=== PATIENT | female | born 1945 | race Caucasian/White ===

== ENCOUNTER 2019-09-29 15:12 | Observation (INO) | payer MEDICARE ==
[~2019-09-29] VITALS: Ht 162.6 cm; Wt 60.0 kg
--- NOTE | 2019-09-29 16:13 | RAD ---
Right forearm 2 views portable: Reason for examination: Fell with pain. The radius and ulna appear to be intact on the images given. Bone density is normal. No abnormal periosteal reaction is seen. Wrist and elbow joints. We've maintained. IMPRESSION: No acute bony abnormality evident at the visualized portion of the radius and ulna. Right shoulder 3 views portable: The clavicle and scapula appear to be intact and the AC joint is maintained. The glenohumeral joint is maintained. There is however a comminuted fracture of the proximal humeral shaft with angulation and displacement. IMPRESSION: Comminuted fracture of the proximal right humerus with angulation and displacement. Right humerus 2 views portable: Again noted is a comminuted fracture of the proximal humeral shaft with angulation and displacement. The glenohumeral joint is maintained. IMPRESSION: Comminuted fracture of the proximal right humerus with angulation and displacement. Electronically signed by: Sara Rodriguez MD (09/29/2019 4:10 PM) [id number]
[2019-09-29] MEDS ORDERED: MORPHINE SULFATE 10 MG/ML VIAL. IV ONE (16:15)
--- NOTE | 2019-09-29 16:55 | PDOC1 ---
History and Physical Date of Admission Date of Admission DATE: 09/29/19 TIME: 16:54 Identification/Chief Complaint Chief Complaint MECHANICAL FALL AT HOME, TRIPPED, seen in er with humeral fx , IN SEVERE PAIN Past Medical History Past Medical History Past Medical History Past Medical History Past Medical History: Depression, Other Additional Past Medical Histor: HERPES Past Surgical History: , Other Additional Past Surgical Histo: LEFT KNEE, CATARACTS Alcohol Use: None FHX HTN Cardiovascular: No pertinent hx Pulmonary: No pertinent hx GI: No pertinent hx Musculoskeletal: Osteoarthritis Renal/: No pertinent hx Dermatology: No pertinent hx Family History Family History: Hypertension Social History Smoke: No ALCOHOL: none Drugs: None, Other (RETIRED [email or web address] [facility]) Current Medications Current Medications Current Medications Morphine Sulfate (Morphine Sulfate) 5 mg 1X ONCE IV Last administered on 09/29/19at 16:29; Start 09/29/19 at 16:15; Stop 09/29/19 at 16:16; Status DC Allergies Allergies: Coded Allergies: No Known Drug Allergies (Unverified , 09/29/19) ROS Review of System Review of Systems Review of Systems Constitutional: Denies fever or chills [] Eyes: Denies change in visual acuity, redness, or eye pain [] HENT: Denies nasal congestion or sore throat [] Respiratory: Denies cough or shortness of breath [] Cardiovascular: No additional information not addressed in HPI [] GI: Denies abdominal pain, nausea, vomiting, bloody stools or diarrhea [] : Denies dysuria or hematuria [] Musculoskeletal: Reports right humerus pain, severe Integument: Denies rash or skin lesions [] Neurologic: Denies headache, focal weakness or sensory changes [] 14 pt systems were reviewed and found to be within normal limits, except as documented ALLERGY AND IMMUNOLOGY: No: Hives, Insect Bite Sensitivity, Itchy/Watery Eyes, Nasal Congestion, Post Nasal Drip, Seasonal Allergies, Other Hematological and Lymphatic: No: Bleeding Problems, Blood Clots, Blood Transfusions, Brusing, Night Sweats, Pallor, Swollen Lymph Nodes, Other Respiratory: No: Cough, Hemoptysis, Orthopnea, Pleuritic Pain, Shortness of breath, SOB with excertion, Sputum Changes, Stridor, Tachypnea, Wheezing, Other Cardiovascular: No Chest Pain, No Palpitations, No Orthopnea, No Paroxysmal Noc. Dyspnea, No Edema, No Lt Headedness, No Other Gastrointestinal: No Nausea, No Vomiting, No Abdominal Pain, No Diarrhea, No Constipation, No Melena, No Hematochezia, No Other Musculoskeletal: Yes Gait Disturbance, Yes Joint Stiffness Neurological: Yes Gait Disturbance Skin: No Dry Skin, No Eczema, No Hair Changes, No Lumps, No Mole Changes, No Mottling, No Nail Changes, No Pruritus, No Rash, No Skin Lesion Changes, No Other, No Acne Physical Exam Physical Exam Physical Exam Physical Exam Constitutional: Well developed, well nourished, mod acute distress, non-toxic appearance. [] HENT: Normocephalic, atraumatic, bilateral external ears normal, oropharynx moist, no oral exudates, nose normal. [] Eyes: PERRLA, EOMI, conjunctiva normal, no discharge. [] Neck: Normal range of motion, no tenderness, supple, no stridor. [] Cardiovascular:Heart rate regular rhythm, no murmur [] Lungs & Thorax: Bilateral breath sounds clear to auscultation [] Abdomen: Bowel sounds normal, soft, no tenderness, no masses, no pulsatile masses. [] Skin: Warm, dry, no erythema, no rash. [] Back: No tenderness, no CVA tenderness. [] Extremities: Right humerus appears obviously deformed. Patient unable to take the right upper extremity through any range of motion. Able to take her fingers through range of motion. Adequate radial, medial, ulnar sensation to the right fingers. +2 right radial pulse. Cap refill less than 2 seconds the right upper extremity. Neurologic: Alert and oriented X 3, normal motor function, normal sensory function, no focal deficits noted. [] Psychologic: Affect normal, judgment normal, mood normal. [] General: Alert, Oriented X3, Cooperative, moderate distress HEENT: Atraumatic, PERRLA Lungs: Clear to auscultation, Normal air movement Heart: RRR, no thrills, no rubs Breasts: Not examined Abdomen: Normal bowel sounds, Soft Rectal Exam: not examined PELVIC: Examination not indicated Extremities: No clubbing, No cyanosis, No edema Neuro: Normal speech, Sensation intact, Cranial nerves 3-12 NL Psych/Mental Status: Mental status NL, Mood NL Vitals Vitals Vital Signs Date Time Temp Pulse Resp B/P (MAP) Pulse Ox O2 Delivery O2 Flow Rate FiO2 09/29/19 16:29 20 97 Room Air 09/29/19 15:13 97.6 77 148/77 (100) 97.6 Images Images PATIENT: SHARMILA ZIEGLEROUNT: [id number] : 1945 LOCATION: ER AGE: 74 SEX: F EXAM STATUS: PRE ER ORD. PHYSICIAN: MILLICENT SARAVIA APRN REASON: fall pain PROCEDURE: HUMERUS RIGHT Right forearm 2 views portable: Reason for examination: Fell with pain. The radius and ulna appear to be intact on the images given. Bone density is normal. No abnormal periosteal reaction is seen. Wrist and elbow joints. We've maintained. IMPRESSION: No acute bony abnormality evident at the visualized portion of the radius and ulna. Right shoulder 3 views portable: The clavicle and scapula appear to be intact and the AC joint is maintained. The glenohumeral joint is maintained. There is however a comminuted fracture of the proximal humeral shaft with angulation and displacement. IMPRESSION: Comminuted fracture of the proximal right humerus with angulation and displacement. Right humerus 2 views portable: Again noted is a comminuted fracture of the proximal humeral shaft with angulation and displacement. The glenohumeral joint is maintained. IMPRESSION: Comminuted fracture of the proximal right humerus with angulation and displacement. Electronically signed by: Sara Rodriguez MD (09/29/2019 4:10 PM) [id number] VTE Prophylaxis Ordered VTE Prophylaxis Devices: Yes VTE Pharmacological Prophylaxi: Yes Assessment/Plan Assessment/Plan IMPRESSION: Comminuted fracture of the proximal right humerus with angulation and displacement. intractable pain gait instability HX DEPRESSION plan admit consult ortho iv fluid support npo p MN DVT PROPHYLAXIS IV PAIN CONTROL HOME MEDS YG GUZMAN MD Sep 29, 2019 16:55
[2019-09-29] MEDS ORDERED: MORPHINE SULFATE 4 MG/ML VIAL. IV PRN (18:00)
[2019-09-29] MEDS ORDERED: ONDANSETRON PF 4 MG/2 ML VIAL. IV PRN (18:00)
[2019-09-29] MEDS ORDERED: ACETAMINOPHEN 325 MG TABLET. PO PRN ×2 (18:00→20:30)
--- NOTE | 2019-09-29 18:04 | PHYS DOC ---
Past Medical History Past Medical History: Depression, Other Additional Past Medical Histor: HERPES Past Surgical History: , Other Additional Past Surgical Histo: LEFT KNEE, CATARACTS Alcohol Use: None Adult General Chief Complaint Chief Complaint: MECHANICAL FALL HPI HPI Patient is a 74 year old female with history of depression who presents to the ED today complaining of moderate pain to the right humerus that began after she tripped and fell washing her vehicle. Patient denies any loss of consciousness, denies hitting her head on the ground. Denies being on any anticoagulants. Reports pain is worse on range of motion. Review of Systems Review of Systems Constitutional: Denies fever or chills [] Eyes: Denies change in visual acuity, redness, or eye pain [] HENT: Denies nasal congestion or sore throat [] Respiratory: Denies cough or shortness of breath [] Cardiovascular: No additional information not addressed in HPI [] GI: Denies abdominal pain, nausea, vomiting, bloody stools or diarrhea [] : Denies dysuria or hematuria [] Musculoskeletal: Reports right humerus pain Integument: Denies rash or skin lesions [] Neurologic: Denies headache, focal weakness or sensory changes [] All other systems were reviewed and found to be within normal limits, except as documented in this note. Current Medications Current Medications Current Medications Medications (Trade) Dose Ordered Sig/[facility] Start Time Stop Time Status Last Admin Dose Admin Morphine Sulfate (Morphine Sulfate) 5 mg 1X ONCE 09/29/19 16:15 09/29/19 16:16 DC 09/29/19 16:29 5 MG Allergies Allergies Allergies Coded Allergies Type Severity Reaction Last Updated Verified No Known Drug Allergies 09/29/19 No Physical Exam Physical Exam Constitutional: Well developed, well nourished, no acute distress, non-toxic appearance. [] HENT: Normocephalic, atraumatic, bilateral external ears normal, oropharynx moist, no oral exudates, nose normal. [] Eyes: PERRLA, EOMI, conjunctiva normal, no discharge. [] Neck: Normal range of motion, no tenderness, supple, no stridor. [] Cardiovascular:Heart rate regular rhythm, no murmur [] Lungs & Thorax: Bilateral breath sounds clear to auscultation [] Abdomen: Bowel sounds normal, soft, no tenderness, no masses, no pulsatile masses. [] Skin: Warm, dry, no erythema, no rash. [] Back: No tenderness, no CVA tenderness. [] Extremities: Right humerus appears obviously deformed. Patient unable to take the right upper extremity through any range of motion. Able to take her fingers through range of motion. Adequate radial, medial, ulnar sensation to the right fingers. +2 right radial pulse. Cap refill less than 2 seconds the right upper extremity. Neurologic: Alert and oriented X 3, normal motor function, normal sensory function, no focal deficits noted. [] Psychologic: Affect normal, judgement normal, mood normal. [] Current Patient Data Vital Signs Vital Signs Date Time Temp Pulse Resp B/P (MAP) Pulse Ox O2 Delivery O2 Flow Rate FiO2 09/29/19 16:29 20 97 Room Air 09/29/19 15:13 97.6 77 148/77 (100) 97.6 EKG EKG [] Radiology/Procedures Radiology/Procedures []PROCEDURE: FOREARM RIGHT Right forearm 2 views portable: Reason for examination: Fell with pain. The radius and ulna appear to be intact on the images given. Bone density is normal. No abnormal periosteal reaction is seen. Wrist and elbow joints. We've maintained. IMPRESSION: No acute bony abnormality evident at the visualized portion of the radius and ulna. Right shoulder 3 views portable: The clavicle and scapula appear to be intact and the AC joint is maintained. The glenohumeral joint is maintained. There is however a comminuted fracture of the proximal humeral shaft with angulation and displacement. IMPRESSION: Comminuted fracture of the proximal right humerus with angulation and displacement. Right humerus 2 views portable: Again noted is a comminuted fracture of the proximal humeral shaft with angulation and displacement. The glenohumeral joint is maintained. IMPRESSION: Comminuted fracture of the proximal right humerus with angulation and displacement. Electronically signed by: Sara Scruggs MD (09/29/2019 4:10 PM) [id number] DICTATED and SIGNED BY: SARA SCRUGGS MD DATE: 09/29/19 1610 Course & Med Decision Making Course & Med Decision Making Pertinent Labs and Imaging studies reviewed. (See chart for details) This is a 74-year-old female patient presenting to the ED today with right humerus pain status post falling. Right humerus x-rays interpreted by radiologist were noted for-Comminuted fracture of the proximal right humerus with angulation and displacement. Patient's pain is not well controlled. She is received fentanyl twice by EMS, received morphine in the ED, stating pain. Spoke with Dr. Clemens who will follow-up with patient Spoke with Dr. Cha who accepted patient for admission Dragon Disclaimer Dragon Disclaimer This electronic medical record was generated, in whole or in part, using a voice recognition dictation system. Departure Departure Impression: Primary Impression: Fall Additional Impression: Right humeral fracture Disposition: ADMITTED INPATIENT Condition: STABLE Referrals: RIGOBERTO LANG (PCP) Problem Qualifiers Primary Impression: Fall Encounter type: initial encounter Qualified Codes: W19.XXXA - Unspecified fall, initial encounter Additional Impression: Right humeral fracture Encounter type: initial encounter Humerus Location: shaft Fracture type: closed Fracture morphology: comminuted Fracture alignment: displaced Qualified Codes: S42.351A - Displaced comminuted fracture of shaft of humerus, right arm, initial encounter for closed fracture MILLICENT SARAVIA APRN Sep 29, 2019 18:04
[2019-09-29 19:00] VITALS: BP 114/54
--- NOTE | 2019-09-29 19:00 | NUR ---
The patient, NASREEN ZIEGLER, 74 y/o, F admitted by YG GUZMAN MD, was given written information regarding hospital policies, unit procedures and contact persons. Valuables were checked and left with her.
[2019-09-29] MEDS ORDERED: cloNIDine HCL 0.1 MG TABLET PO PRN (20:30)
[2019-09-29] MEDS ORDERED: LORazepam 0.5 MG TABLET PO PRN (20:30)
[2019-09-29] MEDS ORDERED: 0.9 % SODIUM CHLORIDE 10 ML DISP.SYRIN. IV PRN (20:30)
[2019-09-29] MEDS ORDERED: DOCUSATE SODIUM 100 MG CAPSULE. PO PRN (20:30)
[2019-09-29] MEDS ORDERED: MAG HYDROX/ALUMINUM HYD/SIMETH 30 ML ORAL.SUSP PO PRN (20:30)
[2019-09-29] MEDS ORDERED: ZOLPIDEM 5 MG TABLET. PO PRN (20:30)
[2019-09-29] MEDS ORDERED: ALBUTEROL SULFATE 2.5 MG/3 ML NEBU. NEB PRN (20:30)
[2019-09-29] MEDS ORDERED: guaiFENesin ORAL 200 MG/10 ML LIQUID. PO PRN (20:30)
[2019-09-29 20:51] LABS: BASO % 0 % (0-3); EOS % 0 % (0-3); HEMATOCRIT 35.6 % (36.0-47.0); HEMOGLOBIN 11.7 g/dL (12.0-15.5); LYMPH # 0.9 x10^3/uL (1.0-4.8); LYMPH % 6 % (24-48); MEAN CORPUSCULAR HEMOGLOBIN 30 pg (25-35); MEAN CORPUSCULAR HGB CONC 33 g/dL (31-37); MEAN CORPUSCULAR VOLUME 90 fL (79-100); MONO % 7 % (0-9); NEUT # 12.4 x10^3/uL (1.8-7.7); NEUT % 86 % (31-73); PLATELET COUNT 252 x10^3/uL (140-400); RED BLOOD COUNT 3.94 x10^6/uL (3.50-5.40); RED CELL DISTRIBUTION WIDTH 13.7 % (11.5-14.5); WHITE BLOOD COUNT 14.4 x10^3/uL (4.0-11.0)
[2019-09-29 20:58] LABS: PROTHROMBIN TIME PATIENT 12.9 SEC (11.7-14.0)
[2019-09-29] MEDS: IV NORMAL SALINE 1000ML BAG 1,000 ML IV SCH (21:05)
[2019-09-29] MEDS: ENOXAPARIN 40 MG/0.4 ML SYRINGE. SQ SCH (21:06)
[2019-09-29] MEDS: HYDROmorphone 2 MG/ML VIAL IV PRN ×2 (21:06→23:49)
[2019-09-29 21:07] LABS: ALBUMIN 3.4 g/dL (3.4-5.0); ALBUMIN/GLOBULIN RATIO 1.1 (1.0-1.7); CALCIUM 8.3 mg/dL (8.5-10.1); CREATININE 0.7 mg/dL (0.6-1.0); GFR 81.4; POTASSIUM 3.8 mmol/L (3.5-5.1); TOTAL BILIRUBIN 0.4 mg/dL (0.2-1.0); TOTAL PROTEIN 6.4 g/dL (6.4-8.2)
[2019-09-29 21:22] LABS: % BANDS 17 % (0-9); % LYMPHS 1 % (24-48); % MONOS 8 % (0-10); % SEGS 74 % (35-66); PLT ESTIMATE ADEQUATE (ADEQUATE)
[2019-09-29 23:08] VITALS: BP 116/70
[2019-09-29] MEDS: ONDANSETRON PF 4 MG/2 ML VIAL. IV PRN (23:48)
[2019-09-30] VITALS (7 sets, daily range): BP systolic 99–124; BP diastolic 46–58
[2019-09-30] MEDS: HYDROmorphone 2 MG/ML VIAL IV PRN ×2 (04:13→06:28)
[2019-09-30] MEDS: IV NORMAL SALINE 1000ML BAG 1,000 ML IV SCH ×2 (06:27→17:23)
--- NOTE | 2019-09-30 07:15 | NUR ---
Around 0715 this am SENIOR RADIATION THERAPIST found pt. asleep on BSC. Pt. was hard to arouse. At this time SENIOR RADIATION THERAPIST took a set of vitals. It was then that this nurse and SENIOR RADIATION THERAPIST got pt. safely into bed. This nurse looked at pt. eMAR to see when pain medication was given last. This nurse noticed that IV dilaudid was given around 0628. eMAR showed IV morphine 4mg had no history. This nurse pulled and administered 4mg of IV morphine on 09/29/2019 around 1840. This nurse must not have saved medication scan at that time. SENIOR RADIATION THERAPIST was at bedside at time of medication administration on 09/29/2019.
[2019-09-30] MEDS: ONDANSETRON PF 4 MG/2 ML VIAL. IV PRN (07:31)
[2019-09-30] MEDS ORDERED: NALOXONE 0.4 MG/ML VIAL. ONE (07:49)
[2019-09-30] MEDS ORDERED: NALOXONE 0.4 MG/ML VIAL. IV ONE (08:00)
--- NOTE | 2019-09-30 08:45 | NUR ---
Around 714 HANDS PARTER hollered out for help. HANDS PARTER stated that pt. started to lean all of pt. weight forward on to HANDS PARTER. At this time this nurse, HANDS PARTER, and CN got pt. into bed and started to hook pt. up for vitals. Pt. O2 sat read 53%. This nurse got a simple mask and hooked pt. up to 13L O2. Pt. O2 sat came up and vitals were recorded. This nurse and HANDS PARTER continued to monitor pt. Pt. was only alert to self and this nurse. CN looked at pt. eMAR and noted that pt. was given IV dilaudid around 627. Pt. respirations went down to 5. This nurse called MD and received orders for narcan. This nurse administered narcan around 749. Pt. became alert around 754. As this nurse was explaining what had happened pt. began shaking and moaning out. "I don't know what is happening. I am just shaky" This nurse had HANDS PARTER record another set of VS and asked pt. if she was in pain. Pt. stated "No. I am just shaky. I can't stop shaking." This nurse asked pt. if she was cold. Pt. stated "No." Pt. then began to vomit. Pt. was given a glass of water and cold wash cloth. This nurse and HANDS PARTER helped pt. get cleaned up and comfortable. Pt. stated she just wanted to rest for a minute. At this time, around 812, this nurse gathered a set of vitals (temp. 98.2 oral, BP 121/51, O2 98% 2L NC, RR 12, and HR 90) and allowed pt. to rest. This nurse went in to check on pt. about 20 minutes later. Pt. was awake and alert. This nurse educated pt. about what happened as well as the medications that were give, answered all pt. questions, completed a head to toe assessment and gathered one last set of vitals around 829 (BP 114/55, O2 97% RA, HR 90, RR 12). Will continue to monitor.
--- NOTE | 2019-09-30 11:03 | PDOC ---
PROGRESS NOTES History of Present Illness History of Present Illness VTE Prophylaxis Ordered VTE Prophylaxis Devices: Yes VTE Pharmacological Prophylaxi: Yes Assessment/Plan Assessment/Plan IMPRESSION: Comminuted fracture of the proximal right humerus with angulation and displacement. intractable pain gait instability HX DEPRESSION SOMNOLENT FROM DILAUDID THIS AM 09/30 plan admit consult ortho iv fluid support npo p MN DVT PROPHYLAXIS IV PAIN CONTROL HOME MEDS Pododermatologist to fit humeral fracture brace D/C IV DILAUDID Vitals Vitals Vital Signs Date Time Temp Pulse Resp B/P (MAP) Pulse Ox O2 Delivery O2 Flow Rate FiO2 09/30/19 08:00 106 12 124/55 (78) 95 Room Air 09/30/19 07:30 97.9 13.0 97.9 Physical Exam General: Alert, Oriented X3, Cooperative, mild distress Abdomen: Normal bowel sounds, Soft Extremities: No clubbing, No cyanosis, No edema Labs LABS Laboratory Tests Test 09/29/19 19:30 09/30/19 08:00 White Blood Count 14.4 x10^3/uL (4.0-11.0) Red Blood Count 3.94 x10^6/uL (3.50-5.40) Hemoglobin 11.7 g/dL (12.0-15.5) Hematocrit 35.6 % (36.0-47.0) Mean Corpuscular Volume 90 fL (79-100) Mean Corpuscular Hemoglobin 30 pg (25-35) Mean Corpuscular Hemoglobin Concent 33 g/dL (31-37) Red Cell Distribution Width 13.7 % (11.5-14.5) Platelet Count 252 x10^3/uL (140-400) Neutrophils (%) (Auto) 86 % (31-73) Lymphocytes (%) (Auto) 6 % (24-48) Monocytes (%) (Auto) 7 % (0-9) Eosinophils (%) (Auto) 0 % (0-3) Basophils (%) (Auto) 0 % (0-3) Neutrophils # (Auto) 12.4 x10^3/uL (1.8-7.7) Lymphocytes # (Auto) 0.9 x10^3/uL (1.0-4.8) Monocytes # (Auto) 1.0 x10^3/uL (0.0-1.1) Eosinophils # (Auto) 0.0 x10^3/uL (0.0-0.7) Basophils # (Auto) 0.0 x10^3/uL (0.0-0.2) Segmented Neutrophils % 74 % (35-66) Band Neutrophils % 17 % (0-9) Lymphocytes % 1 % (24-48) Monocytes % 8 % (0-10) Platelet Estimate Adequate (ADEQUATE) Prothrombin Time 12.9 SEC (11.7-14.0) Prothromb Time International Ratio 1.0 (0.8-1.1) Activated Partial Thromboplast Time 26 SEC (24-38) Sodium Level 144 mmol/L (136-145) Potassium Level 3.8 mmol/L (3.5-5.1) Chloride Level 106 mmol/L (98-107) Carbon Dioxide Level 31 mmol/L (21-32) Anion Gap 7 (6-14) Blood Urea Nitrogen 28 mg/dL (7-20) Creatinine 0.7 mg/dL (0.6-1.0) Estimated GFR (Cockcroft-Gault) 81.4 BUN/Creatinine Ratio 40 (6-20) Glucose Level 149 mg/dL (70-99) Calcium Level 8.3 mg/dL (8.5-10.1) Total Bilirubin 0.4 mg/dL (0.2-1.0) Aspartate Amino Transf (AST/SGOT) 15 U/L (15-37) Alanine Aminotransferase (ALT/SGPT) 20 U/L (14-59) Alkaline Phosphatase 49 U/L (46-116) Total Protein 6.4 g/dL (6.4-8.2) Albumin 3.4 g/dL (3.4-5.0) Albumin/Globulin Ratio 1.1 (1.0-1.7) Glucose (Fingerstick) 148 mg/dL (70-99) Assessment and Plan Assessmemt and Plan Problems Medical Problems: (1) Fall Status: Acute (2) Right humeral fracture Status: Acute Comment Review of Relevant I have reviewed the following items anam (where applicable) has been applied. Labs Laboratory Tests Test 09/29/19 19:30 09/30/19 08:00 White Blood Count 14.4 x10^3/uL (4.0-11.0) Red Blood Count 3.94 x10^6/uL (3.50-5.40) Hemoglobin 11.7 g/dL (12.0-15.5) Hematocrit 35.6 % (36.0-47.0) Mean Corpuscular Volume 90 fL (79-100) Mean Corpuscular Hemoglobin 30 pg (25-35) Mean Corpuscular Hemoglobin Concent 33 g/dL (31-37) Red Cell Distribution Width 13.7 % (11.5-14.5) Platelet Count 252 x10^3/uL (140-400) Neutrophils (%) (Auto) 86 % (31-73) Lymphocytes (%) (Auto) 6 % (24-48) Monocytes (%) (Auto) 7 % (0-9) Eosinophils (%) (Auto) 0 % (0-3) Basophils (%) (Auto) 0 % (0-3) Neutrophils # (Auto) 12.4 x10^3/uL (1.8-7.7) Lymphocytes # (Auto) 0.9 x10^3/uL (1.0-4.8) Monocytes # (Auto) 1.0 x10^3/uL (0.0-1.1) Eosinophils # (Auto) 0.0 x10^3/uL (0.0-0.7) Basophils # (Auto) 0.0 x10^3/uL (0.0-0.2) Segmented Neutrophils % 74 % (35-66) Band Neutrophils % 17 % (0-9) Lymphocytes % 1 % (24-48) Monocytes % 8 % (0-10) Platelet Estimate Adequate (ADEQUATE) Prothrombin Time 12.9 SEC (11.7-14.0) Prothromb Time International Ratio 1.0 (0.8-1.1) Activated Partial Thromboplast Time 26 SEC (24-38) Sodium Level 144 mmol/L (136-145) Potassium Level 3.8 mmol/L (3.5-5.1) Chloride Level 106 mmol/L (98-107) Carbon Dioxide Level 31 mmol/L (21-32) Anion Gap 7 (6-14) Blood Urea Nitrogen 28 mg/dL (7-20) Creatinine 0.7 mg/dL (0.6-1.0) Estimated GFR (Cockcroft-Gault) 81.4 BUN/Creatinine Ratio 40 (6-20) Glucose Level 149 mg/dL (70-99) Calcium Level 8.3 mg/dL (8.5-10.1) Total Bilirubin 0.4 mg/dL (0.2-1.0) Aspartate Amino Transf (AST/SGOT) 15 U/L (15-37) Alanine Aminotransferase (ALT/SGPT) 20 U/L (14-59) Alkaline Phosphatase 49 U/L (46-116) Total Protein 6.4 g/dL (6.4-8.2) Albumin 3.4 g/dL (3.4-5.0) Albumin/Globulin Ratio 1.1 (1.0-1.7) Glucose (Fingerstick) 148 mg/dL (70-99) Laboratory Tests Test 09/29/19 19:30 09/30/19 08:00 White Blood Count 14.4 x10^3/uL (4.0-11.0) Red Blood Count 3.94 x10^6/uL (3.50-5.40) Hemoglobin 11.7 g/dL (12.0-15.5) Hematocrit 35.6 % (36.0-47.0) Mean Corpuscular Volume 90 fL (79-100) Mean Corpuscular Hemoglobin 30 pg (25-35) Mean Corpuscular Hemoglobin Concent 33 g/dL (31-37) Red Cell Distribution Width 13.7 % (11.5-14.5) Platelet Count 252 x10^3/uL (140-400) Neutrophils (%) (Auto) 86 % (31-73) Lymphocytes (%) (Auto) 6 % (24-48) Monocytes (%) (Auto) 7 % (0-9) Eosinophils (%) (Auto) 0 % (0-3) Basophils (%) (Auto) 0 % (0-3) Neutrophils # (Auto) 12.4 x10^3/uL (1.8-7.7) Lymphocytes # (Auto) 0.9 x10^3/uL (1.0-4.8) Monocytes # (Auto) 1.0 x10^3/uL (0.0-1.1) Eosinophils # (Auto) 0.0 x10^3/uL (0.0-0.7) Basophils # (Auto) 0.0 x10^3/uL (0.0-0.2) Segmented Neutrophils % 74 % (35-66) Band Neutrophils % 17 % (0-9) Lymphocytes % 1 % (24-48) Monocytes % 8 % (0-10) Platelet Estimate Adequate (ADEQUATE) Prothrombin Time 12.9 SEC (11.7-14.0) Prothromb Time International Ratio 1.0 (0.8-1.1) Activated Partial Thromboplast Time 26 SEC (24-38) Sodium Level 144 mmol/L (136-145) Potassium Level 3.8 mmol/L (3.5-5.1) Chloride Level 106 mmol/L (98-107) Carbon Dioxide Level 31 mmol/L (21-32) Anion Gap 7 (6-14) Blood Urea Nitrogen 28 mg/dL (7-20) Creatinine 0.7 mg/dL (0.6-1.0) Estimated GFR (Cockcroft-Gault) 81.4 BUN/Creatinine Ratio 40 (6-20) Glucose Level 149 mg/dL (70-99) Calcium Level 8.3 mg/dL (8.5-10.1) Total Bilirubin 0.4 mg/dL (0.2-1.0) Aspartate Amino Transf (AST/SGOT) 15 U/L (15-37) Alanine Aminotransferase (ALT/SGPT) 20 U/L (14-59) Alkaline Phosphatase 49 U/L (46-116) Total Protein 6.4 g/dL (6.4-8.2) Albumin 3.4 g/dL (3.4-5.0) Albumin/Globulin Ratio 1.1 (1.0-1.7) Glucose (Fingerstick) 148 mg/dL (70-99) Medications Current Medications Morphine Sulfate (Morphine Sulfate) 5 mg 1X ONCE IV Last administered on 09/29/19at 16:29; Start 09/29/19 at 16:15; Stop 09/29/19 at 16:16; Status DC Ondansetron HCl (Zofran) 4 mg PRN Q8HRS PRN IV NAUSEA/VOMITING; Start 09/29/19 at 18:00; Stop 09/29/19 at 20:33; Status DC Morphine Sulfate (Morphine Sulfate) 4 mg PRN Q2HR PRN IV PAIN; Start 09/29/19 at 18:00; Stop 09/30/19 at 17:59 Acetaminophen (Tylenol) 650 mg PRN Q4HRS PRN PO FEVER; Start 09/29/19 at 18:00; Stop 09/29/19 at 20:32; Status DC Sodium Chloride (Normal Saline Flush) 3 ml QSHIFT PRN IV AFTER MEDS AND BLOOD DRAWS; Start 09/29/19 at 20:30 Sodium Chloride 1,000 ml @ 100 mls/hr Q10H IV Last administered on 09/30/19at 06:27; Start 09/29/19 at 21:00 Ondansetron HCl (Zofran) 4 mg PRN Q4HRS PRN IV NAUSEA/VOMITING 1ST CHOICE Last administered on 09/30/19at 07:31; Start 09/29/19 at 20:30 Zolpidem Tartrate (Ambien) 5 mg PRN QHS PRN PO INSOMNIA; Start 09/29/19 at 20:30 Acetaminophen (Tylenol) 650 mg PRN Q4HRS PRN PO TEMP OVER 100.4F OR MILD PAIN; Start 09/29/19 at 20:30 Al Hydroxide/Mg Hydroxide (Mylanta Plus Xs) 30 ml PRN DAILY PRN PO HEARTBURN / GAS; Start 09/29/19 at 20:30 Clonidine HCl (Catapres) 0.1 mg PRN Q6HRS PRN PO SBP>160 OR DBP>90; Start 09/29/19 at 20:30 Docusate Sodium (Colace) 100 mg PRN BID PRN PO CONSTIPATION 1ST CHOICE; Start 09/29/19 at 20:30 Albuterol Sulfate (Ventolin Neb Soln) 2.5 mg PRN Q4HRS PRN NEB SHORTNESS OF BREATH; Start 09/29/19 at 20:30 Guaifenesin (Robitussin) 200 mg PRN Q4HRS PRN PO COUGH; Start 09/29/19 at 20:30 Lorazepam (Ativan) 0.5 mg PRN Q4HRS PRN PO ANXIETY / AGITATION; Start 09/29/19 at 20:30 Hydromorphone HCl (Dilaudid) 1 mg PRN Q2HRS PRN IV SEVERE PAIN 7-10 Last administered on 09/30/19at 06:28; Start 09/29/19 at 20:30 Enoxaparin Sodium (Lovenox 40mg Syringe) 40 mg Q24H SQ ; Start 09/29/19 at 22:00 Naloxone HCl (Narcan) 0.4 mg 1X ONCE IV Last administered on 09/30/19at 07:51; Start 09/30/19 at 08:00; Stop 09/30/19 at 08:01; Status DC Naloxone HCl (Narcan) 0.4 mg STK-MED ONCE .ROUTE ; Start 09/30/19 at 07:49; Stop 09/30/19 at 07:50; Status DC Vitals/I & O Vital Sign - Last 24 Hours 09/29/19 09/29/19 09/29/19 09/29/19 15:13 15:16 15:46 16:16 Temp 97.6 97.6 Pulse 77 67 65 66 Resp 20 B/P (MAP) 148/77 (100) Pulse Ox 99 97 97 98 O2 Delivery Room Air 09/29/19 09/29/19 09/29/19 09/29/19 16:29 16:46 17:16 17:46 Pulse 64 64 67 Resp 20 Pulse Ox 97 98 98 97 O2 Delivery Room Air 09/29/19 09/29/19 09/29/19 09/29/19 19:00 19:30 21:06 21:36 Temp 97.7 97.7 Pulse 68 Resp 18 18 18 B/P (MAP) 114/54 (74) Pulse Ox 96 96 96 O2 Delivery Room Air Room Air Room Air Room Air 09/29/19 09/29/19 09/30/19 09/30/19 23:08 23:49 00:19 03:00 Temp 98.0 98.1 98.0 98.1 Pulse 87 98 Resp 18 18 18 18 B/P (MAP) 116/70 (85) 107/53 (71) Pulse Ox 94 94 94 94 O2 Delivery Room Air Room Air Room Air Room Air 09/30/19 09/30/19 09/30/19 09/30/19 04:13 06:28 06:58 07:30 Temp 97.9 97.9 Pulse 119 Resp 18 18 18 7 B/P (MAP) 114/58 (76) Pulse Ox 94 94 94 95 O2 Delivery Room Air Room Air Room Air Simple Mask O2 Flow Rate 13.0 09/30/19 08:00 Pulse 106 Resp 12 B/P (MAP) 124/55 (78) Pulse Ox 95 O2 Delivery Room Air Intake and Output 09/29/19 09/29/19 09/30/19 15:00 23:00 07:00 Intake Total 60 ml 0 ml Balance 60 ml 0 ml YG GUZMAN MD Sep 30, 2019 11:03
--- NOTE | 2019-09-30 12:23 | PDOC2 ---
CONSULT Date of Consult Date of Consult DATE: 09/30/19 TIME: 12:16 Reason for Consult Reason for Consult: Right humerus fracture Referring Physician Referring Physician: Semaj Identification/Chief Complaint Chief Complaint R arm pain Source Source: Patient History of Present Illness Reason for Visit: Patient is a 74 yo F who had a ground level fall yesterday and was into ER. Found to have R humeral shaft fracture. She is quite sedated this am and doesn't offer any further info Past Medical History Cardiovascular: No pertinent hx Pulmonary: No pertinent hx GI: No pertinent hx Musculoskeletal: Osteoarthritis Renal/: No pertinent hx Dermatology: No pertinent hx Family History Family History: Hypertension Social History No ALCOHOL: none Drugs: None, Other (RETIRED [employer]) Lives: Snf Current Problem List Problem List Problems Medical Problems: (1) Fall Status: Acute (2) Right humeral fracture Status: Acute Current Medications Current Medications Current Medications Morphine Sulfate (Morphine Sulfate) 5 mg 1X ONCE IV Last administered on 09/29/19at 16:29; Start 09/29/19 at 16:15; Stop 09/29/19 at 16:16; Status DC Ondansetron HCl (Zofran) 4 mg PRN Q8HRS PRN IV NAUSEA/VOMITING; Start 09/29/19 at 18:00; Stop 09/29/19 at 20:33; Status DC Morphine Sulfate (Morphine Sulfate) 4 mg PRN Q2HR PRN IV PAIN; Start 09/29/19 at 18:00; Stop 09/30/19 at 17:59 Acetaminophen (Tylenol) 650 mg PRN Q4HRS PRN PO FEVER; Start 09/29/19 at 18:00; Stop 09/29/19 at 20:32; Status DC Sodium Chloride (Normal Saline Flush) 3 ml QSHIFT PRN IV AFTER MEDS AND BLOOD DRAWS; Start 09/29/19 at 20:30 Sodium Chloride 1,000 ml @ 100 mls/hr Q10H IV Last administered on 09/30/19at 06:27; Start 09/29/19 at 21:00 Ondansetron HCl (Zofran) 4 mg PRN Q4HRS PRN IV NAUSEA/VOMITING 1ST CHOICE Last administered on 09/30/19at 07:31; Start 09/29/19 at 20:30 Zolpidem Tartrate (Ambien) 5 mg PRN QHS PRN PO INSOMNIA; Start 09/29/19 at 20:30 Acetaminophen (Tylenol) 650 mg PRN Q4HRS PRN PO TEMP OVER 100.4F OR MILD PAIN; Start 09/29/19 at 20:30 Al Hydroxide/Mg Hydroxide (Mylanta Plus Xs) 30 ml PRN DAILY PRN PO HEARTBURN / GAS; Start 09/29/19 at 20:30 Clonidine HCl (Catapres) 0.1 mg PRN Q6HRS PRN PO SBP>160 OR DBP>90; Start 09/29/19 at 20:30 Docusate Sodium (Colace) 100 mg PRN BID PRN PO CONSTIPATION 1ST CHOICE; Start 09/29/19 at 20:30 Albuterol Sulfate (Ventolin Neb Soln) 2.5 mg PRN Q4HRS PRN NEB SHORTNESS OF BREATH; Start 09/29/19 at 20:30 Guaifenesin (Robitussin) 200 mg PRN Q4HRS PRN PO COUGH; Start 09/29/19 at 20:30 Lorazepam (Ativan) 0.5 mg PRN Q4HRS PRN PO ANXIETY / AGITATION; Start 09/29/19 at 20:30 Hydromorphone HCl (Dilaudid) 1 mg PRN Q2HRS PRN IV SEVERE PAIN 7-10 Last administered on 09/30/19at 06:28; Start 09/29/19 at 20:30 Enoxaparin Sodium (Lovenox 40mg Syringe) 40 mg Q24H SQ ; Start 09/29/19 at 22:00 Naloxone HCl (Narcan) 0.4 mg 1X ONCE IV Last administered on 09/30/19at 07:51; Start 09/30/19 at 08:00; Stop 09/30/19 at 08:01; Status DC Naloxone HCl (Narcan) 0.4 mg STK-MED ONCE .ROUTE ; Start 09/30/19 at 07:49; Stop 09/30/19 at 07:50; Status DC Allergies Allergies: Coded Allergies: No Known Drug Allergies (Unverified , 09/29/19) ROS Review of System unobtainable due to patient's mental status Physical Exam General: mild distress HEENT: Atraumatic, EOMI, Other (pinpoint pupils) Lungs: Other (resps slow) Heart: Regular rate Abdomen: Soft, No tenderness Extremities: No edema, Normal pulses Neuro: Other (unable to reliably asses m/s due to patient's drowsines) Psych/Mental Status: Other MUSCULOSKELETAL: Other (gross deformity at R arm, RUE in sling) Vitals VITALS Vital Signs Date Time Temp Pulse Resp B/P (MAP) Pulse Ox O2 Delivery O2 Flow Rate FiO2 09/30/19 11:53 98.2 92 16 106/46 (66) 97 Nasal Cannula 2.5 98.2 Labs Labs Laboratory Tests Test 09/29/19 19:30 09/30/19 08:00 White Blood Count 14.4 x10^3/uL (4.0-11.0) Red Blood Count 3.94 x10^6/uL (3.50-5.40) Hemoglobin 11.7 g/dL (12.0-15.5) Hematocrit 35.6 % (36.0-47.0) Mean Corpuscular Volume 90 fL (79-100) Mean Corpuscular Hemoglobin 30 pg (25-35) Mean Corpuscular Hemoglobin Concent 33 g/dL (31-37) Red Cell Distribution Width 13.7 % (11.5-14.5) Platelet Count 252 x10^3/uL (140-400) Neutrophils (%) (Auto) 86 % (31-73) Lymphocytes (%) (Auto) 6 % (24-48) Monocytes (%) (Auto) 7 % (0-9) Eosinophils (%) (Auto) 0 % (0-3) Basophils (%) (Auto) 0 % (0-3) Neutrophils # (Auto) 12.4 x10^3/uL (1.8-7.7) Lymphocytes # (Auto) 0.9 x10^3/uL (1.0-4.8) Monocytes # (Auto) 1.0 x10^3/uL (0.0-1.1) Eosinophils # (Auto) 0.0 x10^3/uL (0.0-0.7) Basophils # (Auto) 0.0 x10^3/uL (0.0-0.2) Segmented Neutrophils % 74 % (35-66) Band Neutrophils % 17 % (0-9) Lymphocytes % 1 % (24-48) Monocytes % 8 % (0-10) Platelet Estimate Adequate (ADEQUATE) Prothrombin Time 12.9 SEC (11.7-14.0) Prothromb Time International Ratio 1.0 (0.8-1.1) Activated Partial Thromboplast Time 26 SEC (24-38) Sodium Level 144 mmol/L (136-145) Potassium Level 3.8 mmol/L (3.5-5.1) Chloride Level 106 mmol/L (98-107) Carbon Dioxide Level 31 mmol/L (21-32) Anion Gap 7 (6-14) Blood Urea Nitrogen 28 mg/dL (7-20) Creatinine 0.7 mg/dL (0.6-1.0) Estimated GFR (Cockcroft-Gault) 81.4 BUN/Creatinine Ratio 40 (6-20) Glucose Level 149 mg/dL (70-99) Calcium Level 8.3 mg/dL (8.5-10.1) Total Bilirubin 0.4 mg/dL (0.2-1.0) Aspartate Amino Transf (AST/SGOT) 15 U/L (15-37) Alanine Aminotransferase (ALT/SGPT) 20 U/L (14-59) Alkaline Phosphatase 49 U/L (46-116) Total Protein 6.4 g/dL (6.4-8.2) Albumin 3.4 g/dL (3.4-5.0) Albumin/Globulin Ratio 1.1 (1.0-1.7) Glucose (Fingerstick) 148 mg/dL (70-99) Laboratory Tests Test 09/29/19 19:30 09/30/19 08:00 White Blood Count 14.4 x10^3/uL (4.0-11.0) Red Blood Count 3.94 x10^6/uL (3.50-5.40) Hemoglobin 11.7 g/dL (12.0-15.5) Hematocrit 35.6 % (36.0-47.0) Mean Corpuscular Volume 90 fL (79-100) Mean Corpuscular Hemoglobin 30 pg (25-35) Mean Corpuscular Hemoglobin Concent 33 g/dL (31-37) Red Cell Distribution Width 13.7 % (11.5-14.5) Platelet Count 252 x10^3/uL (140-400) Neutrophils (%) (Auto) 86 % (31-73) Lymphocytes (%) (Auto) 6 % (24-48) Monocytes (%) (Auto) 7 % (0-9) Eosinophils (%) (Auto) 0 % (0-3) Basophils (%) (Auto) 0 % (0-3) Neutrophils # (Auto) 12.4 x10^3/uL (1.8-7.7) Lymphocytes # (Auto) 0.9 x10^3/uL (1.0-4.8) Monocytes # (Auto) 1.0 x10^3/uL (0.0-1.1) Eosinophils # (Auto) 0.0 x10^3/uL (0.0-0.7) Basophils # (Auto) 0.0 x10^3/uL (0.0-0.2) Segmented Neutrophils % 74 % (35-66) Band Neutrophils % 17 % (0-9) Lymphocytes % 1 % (24-48) Monocytes % 8 % (0-10) Platelet Estimate Adequate (ADEQUATE) Prothrombin Time 12.9 SEC (11.7-14.0) Prothromb Time International Ratio 1.0 (0.8-1.1) Activated Partial Thromboplast Time 26 SEC (24-38) Sodium Level 144 mmol/L (136-145) Potassium Level 3.8 mmol/L (3.5-5.1) Chloride Level 106 mmol/L (98-107) Carbon Dioxide Level 31 mmol/L (21-32) Anion Gap 7 (6-14) Blood Urea Nitrogen 28 mg/dL (7-20) Creatinine 0.7 mg/dL (0.6-1.0) Estimated GFR (Cockcroft-Gault) 81.4 BUN/Creatinine Ratio 40 (6-20) Glucose Level 149 mg/dL (70-99) Calcium Level 8.3 mg/dL (8.5-10.1) Total Bilirubin 0.4 mg/dL (0.2-1.0) Aspartate Amino Transf (AST/SGOT) 15 U/L (15-37) Alanine Aminotransferase (ALT/SGPT) 20 U/L (14-59) Alkaline Phosphatase 49 U/L (46-116) Total Protein 6.4 g/dL (6.4-8.2) Albumin 3.4 g/dL (3.4-5.0) Albumin/Globulin Ratio 1.1 (1.0-1.7) Glucose (Fingerstick) 148 mg/dL (70-99) Images Images Xrays reviewed, humeral shaft fx with large butterfly fragment Assessment/Plan Assessment/Plan Nursing was in the process of administering Narcan during my visit. I will discuss treatment options with her tomorrow. Closing Coordinator to fit humeral fracture brace Per report from nursing, she had previously not had interest in surgery, which is reasonable for humeral shaft fractures. I will talk with her more tomorrow, but we may give the fracture brace a trial and go from there ELY ALANIS II, MD Sep 30, 2019 12:23
[2019-09-30] MEDS: HYDROcodone/APAP 5/325MG 1 TAB TABLET PO PRN ×2 (17:23→21:59)
[2019-09-30] MEDS: ENOXAPARIN 40 MG/0.4 ML SYRINGE. SQ SCH (22:00)
[2019-10-01] MEDS: HYDROcodone/APAP 5/325MG 1 TAB TABLET PO PRN ×2 (02:07→06:37)
[2019-10-01 03:00] VITALS: BP 102/50
[2019-10-01] MEDS: IV NORMAL SALINE 1000ML BAG 1,000 ML IV SCH (03:54)
[2019-10-01 07:00] VITALS: BP 119/52
--- NOTE | 2019-10-01 07:58 | PDOC ---
PROGRESS NOTES Chief Complaint Chief Complaint A/P: Comminuted fracture of the proximal right humerus with angulation and displacement. intractable pain gait instability HX DEPRESSION SOMNOLENT FROM DILAUDID THIS AM 09/30 plan admit consult ortho iv fluid support npo p MN DVT PROPHYLAXIS IV PAIN CONTROL HOME MEDS Deliverer Merchandise to fit humeral fracture brace D/C IV DILAUDID History of Present Illness History of Present Illness MECHANICAL FALL AT HOME, TRIPPED, seen in er with humeral fx , IN SEVERE PAIN Vitals Vitals Vital Signs Date Time Temp Pulse Resp B/P (MAP) Pulse Ox O2 Delivery O2 Flow Rate FiO2 10/01/19 06:37 20 98 Nasal Cannula 2.0 10/01/19 03:00 98.6 60 102/50 (67) 98.6 Physical Exam General: mild distress Heart: Regular rate Abdomen: Soft, No tenderness Extremities: No edema, Normal pulses Labs LABS Laboratory Tests Test 09/30/19 08:00 Glucose (Fingerstick) 148 mg/dL (70-99) Assessment and Plan Assessmemt and Plan Problems Medical Problems: (1) Fall Status: Acute (2) Right humeral fracture Status: Acute Comment Review of Relevant I have reviewed the following items anam (where applicable) has been applied. Labs Laboratory Tests Test 09/29/19 19:30 09/30/19 08:00 White Blood Count 14.4 x10^3/uL (4.0-11.0) Red Blood Count 3.94 x10^6/uL (3.50-5.40) Hemoglobin 11.7 g/dL (12.0-15.5) Hematocrit 35.6 % (36.0-47.0) Mean Corpuscular Volume 90 fL (79-100) Mean Corpuscular Hemoglobin 30 pg (25-35) Mean Corpuscular Hemoglobin Concent 33 g/dL (31-37) Red Cell Distribution Width 13.7 % (11.5-14.5) Platelet Count 252 x10^3/uL (140-400) Neutrophils (%) (Auto) 86 % (31-73) Lymphocytes (%) (Auto) 6 % (24-48) Monocytes (%) (Auto) 7 % (0-9) Eosinophils (%) (Auto) 0 % (0-3) Basophils (%) (Auto) 0 % (0-3) Neutrophils # (Auto) 12.4 x10^3/uL (1.8-7.7) Lymphocytes # (Auto) 0.9 x10^3/uL (1.0-4.8) Monocytes # (Auto) 1.0 x10^3/uL (0.0-1.1) Eosinophils # (Auto) 0.0 x10^3/uL (0.0-0.7) Basophils # (Auto) 0.0 x10^3/uL (0.0-0.2) Segmented Neutrophils % 74 % (35-66) Band Neutrophils % 17 % (0-9) Lymphocytes % 1 % (24-48) Monocytes % 8 % (0-10) Platelet Estimate Adequate (ADEQUATE) Prothrombin Time 12.9 SEC (11.7-14.0) Prothromb Time International Ratio 1.0 (0.8-1.1) Activated Partial Thromboplast Time 26 SEC (24-38) Sodium Level 144 mmol/L (136-145) Potassium Level 3.8 mmol/L (3.5-5.1) Chloride Level 106 mmol/L (98-107) Carbon Dioxide Level 31 mmol/L (21-32) Anion Gap 7 (6-14) Blood Urea Nitrogen 28 mg/dL (7-20) Creatinine 0.7 mg/dL (0.6-1.0) Estimated GFR (Cockcroft-Gault) 81.4 BUN/Creatinine Ratio 40 (6-20) Glucose Level 149 mg/dL (70-99) Calcium Level 8.3 mg/dL (8.5-10.1) Total Bilirubin 0.4 mg/dL (0.2-1.0) Aspartate Amino Transf (AST/SGOT) 15 U/L (15-37) Alanine Aminotransferase (ALT/SGPT) 20 U/L (14-59) Alkaline Phosphatase 49 U/L (46-116) Total Protein 6.4 g/dL (6.4-8.2) Albumin 3.4 g/dL (3.4-5.0) Albumin/Globulin Ratio 1.1 (1.0-1.7) Glucose (Fingerstick) 148 mg/dL (70-99) Laboratory Tests Test 09/30/19 08:00 Glucose (Fingerstick) 148 mg/dL (70-99) Medications Current Medications Morphine Sulfate (Morphine Sulfate) 5 mg 1X ONCE IV Last administered on 09/29/19at 16:29; Start 09/29/19 at 16:15; Stop 09/29/19 at 16:16; Status DC Ondansetron HCl (Zofran) 4 mg PRN Q8HRS PRN IV NAUSEA/VOMITING; Start 09/29/19 at 18:00; Stop 09/29/19 at 20:33; Status DC Morphine Sulfate (Morphine Sulfate) 4 mg PRN Q2HR PRN IV PAIN Last administered on 09/30/19at 13:46; Start 09/29/19 at 18:00; Stop 09/30/19 at 17:59; Status DC Acetaminophen (Tylenol) 650 mg PRN Q4HRS PRN PO FEVER; Start 09/29/19 at 18:00; Stop 09/29/19 at 20:32; Status DC Sodium Chloride (Normal Saline Flush) 3 ml QSHIFT PRN IV AFTER MEDS AND BLOOD DRAWS; Start 09/29/19 at 20:30 Sodium Chloride 1,000 ml @ 100 mls/hr Q10H IV Last administered on 10/01/19at 03:54; Start 09/29/19 at 21:00 Ondansetron HCl (Zofran) 4 mg PRN Q4HRS PRN IV NAUSEA/VOMITING 1ST CHOICE Last administered on 09/30/19at 07:31; Start 09/29/19 at 20:30 Zolpidem Tartrate (Ambien) 5 mg PRN QHS PRN PO INSOMNIA; Start 09/29/19 at 20:30 Acetaminophen (Tylenol) 650 mg PRN Q4HRS PRN PO TEMP OVER 100.4F OR MILD PAIN; Start 09/29/19 at 20:30 Al Hydroxide/Mg Hydroxide (Mylanta Plus Xs) 30 ml PRN DAILY PRN PO HEARTBURN / GAS; Start 09/29/19 at 20:30 Clonidine HCl (Catapres) 0.1 mg PRN Q6HRS PRN PO SBP>160 OR DBP>90; Start 09/29/19 at 20:30 Docusate Sodium (Colace) 100 mg PRN BID PRN PO CONSTIPATION 1ST CHOICE; Start 09/29/19 at 20:30 Albuterol Sulfate (Ventolin Neb Soln) 2.5 mg PRN Q4HRS PRN NEB SHORTNESS OF BREATH; Start 09/29/19 at 20:30 Guaifenesin (Robitussin) 200 mg PRN Q4HRS PRN PO COUGH; Start 09/29/19 at 20:30 Lorazepam (Ativan) 0.5 mg PRN Q4HRS PRN PO ANXIETY / AGITATION Last administered on 10/01/19at 02:13; Start 09/29/19 at 20:30 Hydromorphone HCl (Dilaudid) 1 mg PRN Q2HRS PRN IV SEVERE PAIN 7-10 Last administered on 09/30/19at 06:28; Start 09/29/19 at 20:30; Stop 09/30/19 at 14:24; Status DC Enoxaparin Sodium (Lovenox 40mg Syringe) 40 mg Q24H SQ ; Start 09/29/19 at 22:00 Naloxone HCl (Narcan) 0.4 mg 1X ONCE IV Last administered on 09/30/19at 07:51; Start 09/30/19 at 08:00; Stop 09/30/19 at 08:01; Status DC Naloxone HCl (Narcan) 0.4 mg STK-MED ONCE .ROUTE ; Start 09/30/19 at 07:49; Stop 09/30/19 at 07:50; Status DC Acetaminophen/ Hydrocodone Bitart (Lortab 5/325) 1 tab PRN Q4HRS PRN PO MODERATE TO SEVERE PAIN Last administered on 10/01/19at 06:37; Start 09/30/19 at 17:15 Vitals/I & O Vital Sign - Last 24 Hours 09/30/19 09/30/19 09/30/19 09/30/19 08:00 08:30 11:53 13:46 Temp 98.2 98.2 Pulse 106 92 Resp 12 16 B/P (MAP) 124/55 (78) 106/46 (66) Pulse Ox 95 97 O2 Delivery Room Air Nasal Cannula Nasal Cannula Room Air O2 Flow Rate 2.0 2.5 09/30/19 09/30/19 09/30/19 09/30/19 15:59 17:21 17:23 18:25 Temp 98.9 98.9 Pulse 83 Resp 16 B/P (MAP) 106/47 (66) Pulse Ox 92 O2 Delivery Room Air Room Air Room Air Room Air 09/30/19 09/30/19 09/30/19 09/30/19 19:00 20:00 21:59 22:59 Temp 98.1 98.1 Pulse 85 Resp 18 20 18 B/P (MAP) 99/49 (66) Pulse Ox 91 93 91 O2 Delivery Room Air Nasal Cannula Room Air Room Air O2 Flow Rate 2.0 09/30/19 10/01/19 10/01/19 10/01/19 23:00 02:07 03:00 03:07 Temp 99.0 98.6 99.0 98.6 Pulse 80 60 Resp 16 20 18 20 B/P (MAP) 102/51 (68) 102/50 (67) Pulse Ox 90 93 98 98 O2 Delivery Room Air Room Air Nasal Cannula Nasal Cannula O2 Flow Rate 2.0 2.0 10/01/19 06:37 Resp 20 Pulse Ox 98 O2 Delivery Nasal Cannula O2 Flow Rate 2.0 Intake and Output 09/30/19 09/30/19 10/01/19 15:00 23:00 07:00 Intake Total 1400 ml 200 ml Balance 1400 ml 200 ml NONA AYALA MD Oct 01, 2019 07:58
--- NOTE | 2019-10-01 10:30 | PDOC ---
ORTHO PROGRESS NOTES Subjective Patient is much more awake and alert, she tells me her pain is tolerable. She is complaining of right arm pain, denies any other concerns. She has questions if she will go home today Vitals Vital Signs Date Time Temp Pulse Resp B/P (MAP) Pulse Ox O2 Delivery O2 Flow Rate FiO2 10/01/19 07:37 20 98 Nasal Cannula 2.0 10/01/19 07:00 98.2 75 119/52 (74) 98.2 Labs Laboratory Tests Test 09/29/19 19:30 09/30/19 08:00 White Blood Count 14.4 x10^3/uL (4.0-11.0) Red Blood Count 3.94 x10^6/uL (3.50-5.40) Hemoglobin 11.7 g/dL (12.0-15.5) Hematocrit 35.6 % (36.0-47.0) Mean Corpuscular Volume 90 fL (79-100) Mean Corpuscular Hemoglobin 30 pg (25-35) Mean Corpuscular Hemoglobin Concent 33 g/dL (31-37) Red Cell Distribution Width 13.7 % (11.5-14.5) Platelet Count 252 x10^3/uL (140-400) Neutrophils (%) (Auto) 86 % (31-73) Lymphocytes (%) (Auto) 6 % (24-48) Monocytes (%) (Auto) 7 % (0-9) Eosinophils (%) (Auto) 0 % (0-3) Basophils (%) (Auto) 0 % (0-3) Neutrophils # (Auto) 12.4 x10^3/uL (1.8-7.7) Lymphocytes # (Auto) 0.9 x10^3/uL (1.0-4.8) Monocytes # (Auto) 1.0 x10^3/uL (0.0-1.1) Eosinophils # (Auto) 0.0 x10^3/uL (0.0-0.7) Basophils # (Auto) 0.0 x10^3/uL (0.0-0.2) Segmented Neutrophils % 74 % (35-66) Band Neutrophils % 17 % (0-9) Lymphocytes % 1 % (24-48) Monocytes % 8 % (0-10) Platelet Estimate Adequate (ADEQUATE) Prothrombin Time 12.9 SEC (11.7-14.0) Prothromb Time International Ratio 1.0 (0.8-1.1) Activated Partial Thromboplast Time 26 SEC (24-38) Sodium Level 144 mmol/L (136-145) Potassium Level 3.8 mmol/L (3.5-5.1) Chloride Level 106 mmol/L (98-107) Carbon Dioxide Level 31 mmol/L (21-32) Anion Gap 7 (6-14) Blood Urea Nitrogen 28 mg/dL (7-20) Creatinine 0.7 mg/dL (0.6-1.0) Estimated GFR (Cockcroft-Gault) 81.4 BUN/Creatinine Ratio 40 (6-20) Glucose Level 149 mg/dL (70-99) Calcium Level 8.3 mg/dL (8.5-10.1) Total Bilirubin 0.4 mg/dL (0.2-1.0) Aspartate Amino Transf (AST/SGOT) 15 U/L (15-37) Alanine Aminotransferase (ALT/SGPT) 20 U/L (14-59) Alkaline Phosphatase 49 U/L (46-116) Total Protein 6.4 g/dL (6.4-8.2) Albumin 3.4 g/dL (3.4-5.0) Albumin/Globulin Ratio 1.1 (1.0-1.7) Glucose (Fingerstick) 148 mg/dL (70-99) Notes She is awake and alert, speech is clear Fracture brace in place to right upper extremity. Normal motor and sensation right hand. Assessment and Plan From my standpoint, she will be discharged home. She will follow up with orthopedics in 1 week. Fracture brace to remain in place. Nonweightbearing right upper extremity. ELY ALANIS II, MD Oct 01, 2019 10:30
[2019-10-01] MEDS ORDERED: HYDR-2761 PO (10:44)
--- NOTE | 2019-10-01 10:47 | SNU/HH DC ---
DISCHARGE WITH HOME HEALTH DISCHARGE INFORMATION: Discharge Date: Oct 01, 2019 Final Diagnosis: Problems Medical Problems: (1) Fall Status: Acute (2) Right humeral fracture Status: Acute Condition on Discharge: Stable CODE STATUS: Code Status: Full HOME HEALTH: Face to Face: I certify this patient is under my care and that I, or a nurse practitioner or physician's engineer third assistant working with me, had a face to face encounter that meets the physician face to face encounter requirements with this patient on 10/01/2019. Medical Complications: Falls, FX (Right humerus fracture) Detention For: Assess & Educate Safety, Pain Management RN For Eval/Treatment: Yes Physical Therapy For: Evalulation/Treatment Occupational Therapy For: Evaluation/Treatment Speech Language Pathology For: Evaluation/Treatment Pt Meets Homebound Status: Frequent falls w/ injury POST DISCHARGE ORDERS: Activity Instructions for Disc: No restrictions Weight Bearing Status after Di: No restrictions DIET AFTER DISCHARGE: Regular CHECKS AFTER DISCHARGE: Checks after discharge: Check blood press - daily FOLLOW-UP: Follow up with: Dr. Diego Clemens 2-4 weeks TREATMENT/EQUIPMENT ORDERS: Adaptive Equipment Issued: None CERTIFICATION STATEMENT: Certification Statement: Certification Statement: Based on the above finding, I certify that this patient is confined to the home and needs intermittent usp care, physical therapy and/or speech therapy, or continues to need occupational therapy.~ This patient is under my care, and I have initiated the establishment of the plan of care.~ This patient will be followed by myself or a community physician who will periodically review the plan of care. Home Meds Active Scripts Hydrocodone Bit/Acetaminophen (HYDROCODONE-APAP 5-325 ) 1 Tab Tablet, 1 TAB PO PRN Q6HRS PRN for MODERATE TO SEVERE PAIN for 6 Days, #18 TAB Prov:NONA AYALA MD 10/01/19 NONA AYALA MD Oct 01, 2019 10:47
[2019-10-01 11:00] VITALS: BP 110/58
--- NOTE | 2019-10-01 13:15 | NUR ---
PATIENT LEFT THE FLOOR ALONGSIDE HER AND VI ON THE UNIT, PATIENT DID NOT RECEIVE HER DISCHARGE PAPERWORK PRIOR TO LEAVING THE UNIT, WHEN THIS MANAGER INVESTMENT BANKING ENTERED THE ROOM TO GIVE THE PATIENT HER DC PAPER WORK SHE WAS GONE ([id number]), VI RETURNED TO THE UNIT AND INFORMED THIS MANAGER INVESTMENT BANKING THAT SHE DID NOT KNOW THAT THE PATIENT DID NOT HAVE HER PAPERWORK. CALL PLACED TO THE PATIENTS' AND MESSAGE LEFT ON THE ANSWERING MACHINE.
--- NOTE | 2019-10-01 13:40 | NUR ---
SW following. Discussed with RN, pt from home with . Plan to discharge home today with home health. SW met with pt, pt does not have a preference as does not know which take her insurance. SW provided [facility] and [facility], pt picked [facility]. SW faxed referral, [facility] has accepted pt. No further SW needs.
== END 2019-10-01 12:56 | disposition home health service (06) ==
LOC: ER 15:12 → 5 SOUTH 17:05 → INTOOBSV 17:05 → 5 SOUTH 18:10
PROVIDERS: ADMIT Family Medicine; ATTEND Family Medicine
DX: S42.201A Unspecified fracture of upper end of right humerus, initial encounter for closed fracture (principal); F32.9 Major depressive disorder, single episode, unspecified; Z98.891 History of uterine scar from previous surgery; Z96.652 Presence of left artificial knee joint; Z98.49 Cataract extraction status, unspecified eye; W18.39XA Other fall on same level, initial encounter; Y93.89 Activity, other specified; Y92.89 Other specified places as the place of occurrence of the external cause; Y99.8 Other external cause status
CPT/HCPCS: 36415; 73030; 73060; 73090; 80053; 82962; 85007; 85025; 85610; 85730; 96374; 96375; 96376; 97162; 97166; 99284; G0378; J1170; J2270; J2310; J2405; J7030; 99285; G0379